=== PATIENT | female | born 1970 | race African-American/Black ===

== ENCOUNTER 2019-02-19 18:35 | Emergency (ER) | payer MEDICAID ==
[~2019-02-19] VITALS: Ht 170.2 cm; Wt 82.0 kg
[2019-02-19] MEDS ORDERED: KETOROLAC 60MG/2ML VIAL IM ONE (19:45)
[2019-02-19] MEDS ORDERED: METHOCARBAMOL 750MG TABLET PO SCH (19:45)
[2019-02-19] MEDS ORDERED: MORPHINE SULFATE 10 MG/ML CPJ IM ONE (19:45)
[2019-02-19 21:29] VITALS: BP 146/94
== END 2019-02-19 21:31 | disposition home or self-care (01) ==
LOC: ER 18:35
DX: M54.5 Low back pain (principal); V49.40XA Driver injured in collision with unspecified motor vehicles in traffic accident, initial encounter; Y93.89 Activity, other specified; Y92.410 Unspecified street and highway as the place of occurrence of the external cause
CPT/HCPCS: 96372; 99283; J1885